=== PATIENT | female | born 1945 | race Caucasian/White ===

== ENCOUNTER 2025-02-03 16:20 | Emergency (ER) | payer MEDICARE, OTHER, SELFPAY ==
[2025-02-03 16:23] VITALS: BP 171/81
[2025-02-03 16:35] VITALS: BP 171/81
[2025-02-03 17:02] VITALS: BP 131/81
--- NOTE | 2025-02-03 17:13 | ED.GENMED ---
History of Present Illness
General
Chief Complaint: Extremity Pain (non-traumatic)
Source: patient
Exam Limitations: none
Time Seen by Provider: 02/03/25 16:50
Nursing documentation reviewed up to this point in time: agreed with
History of Present Illness
History of Present Illness:
Patient is an 79-year-old female from [facility] who presents to the ER for evaluation. Patient has chronic pain syndrome and is on gabapentin, osteoarthritis involving multiple joints and other medical history including high cholesterol and
diabetes. She presents to the ER today stating her pain was even worse than normal. She complains of pain in throughout her neck area and bilateral shoulders. Her gabapentin is not helping. She reports she has been her in her room a lot not able
to get to the dining [place] because of her pain. She used to see pain management however has not done so in a long time. In addition to gabapentin she does take Excedrin for pain. She did not take Excedrin today. She denies any new injury fever
chills or swelling to extremities.
Past History
Past History
ED Past Medical History: GERD, HTN, NIDDM and Other (back pain)
ED Past Surgical History: Appendectomy
Social History
Tobacco: Non-smoker
Personal:
Review of Systems
Review of Systems
Allergies reviewed?: Yes
All Other Systems: ROS reviewed and negative except as documented in HPI and ROS
Constitutional: Reports no symptoms; Denies fever, fatigue or chills
Respiratory: Reports no symptoms
Cardiac: Reports no symptoms
ABD/GI: Reports no symptoms
Musculoskeletal: Reports other (chronic pain , pain in neck/shoulders worse today )
Skin: Reports no symptoms
Neurological: Reports no symptoms
Psychiatric: Reports no symptoms
Phy Exam
General Physical Exam
General Presentation: no apparent distress
General age: appears stated age
General Skin: warm and dry
General Habitus: elderly
General Mental: alert
General Hydration: appears well hydrated
Cardiovascular Exam
Cardiovascular Exam: regular rate/rhythm, no murmur and normal peripheral pulses
Pulmonary Exam
Pulmonary Exam: lungs clear and no respiratory distress
Neurological Exam
Neurological Exam: alert and oriented x3
Musculoskeletal Exam
Musculoskeletal Exam: other (No obvious swelling or redness to extremity strong pulses to bilateral upper and lower extremities decreased range of motion to shoulders limited abduction no bony midline tenderness to neck)
Skin Exam
Skin Exam: normal color and warm/dry
Psychiatric Exam
Psychiatric Exam: normal mood/affect
Course
Orders/Labs/Results
Orders:
Orders
02/03/25 17:12
CT Cervical Spine W/o Iv Contr Urgent
Comment:
Reason For Exam: pain
Acetaminophen [Tylenol] 1,000 mg PO NOW STA
Shoulder, Left, Trauma CR [CR Shoulder, Trauma - Left] Urgent
Comment:
Reason For Exam: pain
Shoulder, Right, Trauma [CR Shoulder, Trauma - Right] Urgent
Comment:
Reason For Exam: pain
Vital Signs
Initial and Last Documented VS:
Initial Vital Signs
Temp Pulse Resp BP Pulse Ox
97.8 F 75 16 171/81 98
02/03/25 16:23 02/03/25 16:23 02/03/25 16:23 02/03/25 16:23 02/03/25 16:23
Last Documented Vital Signs
Temp Pulse Resp BP Pulse Ox
97.8 F 65 16 131/81 97
02/03/25 16:23 02/03/25 18:00 02/03/25 18:00 02/03/25 17:02 02/03/25 18:00
MDM/Problems Addressed
Differential Diagnosis Includes:
Not limited to chronic pain, arthritis
MDM/Problems Addressed:
Patient with chronic pain to joints; in her past she had pain management however has stopped seeing pain management. She is to see Dr. Parekh. She is on gabapentin. She has no new injury. She complains of bilateral shoulder pain and neck pain.
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
Patient is on gabapentin we will continue gabapentin along with Tylenol. She is on Plavix therefore not a candidate for NSAIDs. Will have patient follow-up with orthopedics as well as Dr Parekh.
*Radiology
Radiology exam reviewed: radiology read reviewed
*Pulse Oximetry
Patient hypoxic: no
*Critical Care Note
Total Time (30-74mins, 75-104mins- exclusive of procedures): Not Applicable
ED Attending Note
-
Portions of this chart may have been created with voice recognition software.� Occasional wrong word or��sound alike� substitutions may have occurred due to the inherent limitations of voice recognition software.
Discharge Plan
Departure
Patient Disposition: Home (Routine Discharge)
Date of Disposition: 02/03/25
Time of Disposition: 20:11
Patient with high blood pressure during this ER visit?: Yes
Condition: Fair
Covid-19: Not Applicable
Discharge Problem:
Chronic pain
Instructions: Muscle and Bone Pain (DC), BLOOD PRESSURE
Prescriptions:
No Action
loperamide 2 MG capsule
2 mg PO Q4HPRN PRN (Reason: as needed)
omeprazole 40 MG capsule,delayed release(DR/EC)
40 mg PO DAILY
lorazepam 1 MG tablet
1 mg PO Q4HPRN PRN (Reason: as needed)
diazepam 10 MG tablet
10 mg PO TIDPRN PRN (Reason: as needed)
Lactobacillus acidophilus [Acidophilus] 1 CAP capsule
1 cap PO DAILY
Patient Comments:
pt does not know dose
hydrocodone-acetaminophen 10 MG/650 MG tablet
1 - 2 tab PO .2-4 X'S A DAY
Lactobacillus rhamnosus GG 1 EACH capsule
1 ea PO DAILY
Patient Comments:
(align)
metformin 500 MG tablet extended release 24 hr
500 mg PO BID
valsartan-hydrochlorothiazide [Diovan HCT] 160 MG/25 MG tablet
1 tab PO DAILY
Gas-X
2 tab PO PRN PRN (Reason: gas)
Patient Comments:
pt does not know dose
Ranitidine
150 mg PO DAILY
Referrals:
Angelique Lindsey MD [Family Provider] -
Sawyer Parekh MD [Non-Admitting Privileges] -
Gregory Russell MD [Active] -
Activity Restrictions/Additional Instructions:
As discussed continue your gabapentin; you also may take Tylenol. Please follow-up with your finish painter as well as orthopedics. Return if any worsening of symptoms.
Interventions
Interventions:
*Risk Screen - Suicide Last Done: 02/03/25 16:23
*General Assessment Last Done: 02/03/25 16:23
*Neglect/Abuse Screening Last Done: 02/03/25 16:23
*ED- Fall Risk Assessment Last Done: 02/03/25 16:23
*ED COVID-19 Vaccine History Last Done: 02/03/25 16:30
ED-Skin Assessment Last Done: 02/03/25 16:30
ED-Peripheral Vascular Assessment Last Done: 02/03/25 17:19
ED-Musculoskeletal Assessment Last Done: 02/03/25 16:30
Discharge Date and Time
Print Language: ALBANIAN
[2025-02-03] MEDS: TYLENOL 1000 MG PO (17:24)
[2025-02-03] MEDS: NEURONTIN 600 MG PO (21:23)
[2025-02-03 21:36] VITALS: BP 172/90
== END 2025-02-03 22:32 | disposition home or self-care (01) ==
LOC: EMR 16:20
PROVIDERS: EMERGENCY PHYSICIAN Emergency Medicine; FAMILY PHYSICIAN Internal Medicine Geriatric Medicine
DX: G89.4 Chronic pain syndrome (principal); E11.9 Type 2 diabetes mellitus without complications; E78.00 Pure hypercholesterolemia, unspecified; I10 Essential (primary) hypertension; Z79.02 Long term (current) use of antithrombotics/antiplatelets
CPT/HCPCS: 99284; 72125; 73030